=== PATIENT | female | born 1975 | race Caucasian/White ===

== ENCOUNTER → 2024-01-06 15:03 | Outpatient (REF) | payer BC, SELFPAY | LOC: HWRAD 15:03 | PROVIDERS: ATTENDING PHYSICIAN Otolaryngology Facial Plastic Surgery; FAMILY PHYSICIAN Physician Assistant Medical | DX: J34.2 Deviated nasal septum (principal); J32.0 Chronic maxillary sinusitis | CPT/HCPCS: 70486 ==

== ENCOUNTER → 2024-03-14 06:35 | Outpatient (REF) | payer BC, SELFPAY ==
[2024-03-14 07:41] LABS: Hemoglobin 13.3 g/dL (12.0-16.0); Mean Corp Hgb Conc. 32.4 g/dL (33.0-37.0); Mean Corpuscular Hgb 28.5 pg (27.0-31.0); Mean Corpuscular Volume 87.8 fL (81.0-99.0); Mean Platelet Volume 11.3 fL (7.4-10.4); Platelet Count 232 10^3/uL (130-400); Red Blood Cell Count 4.67 10^6/uL (4.20-5.40); Red Cell Dist. Width 13.3 % (11.5-14.5); White Blood Cell Count 6.1 10^3/uL (4.8-10.8)
[2024-03-14 08:20] LABS: ALT (SGPT) 15 U/L (0-35); AST (SGOT) 22 U/L (14-36); Albumin 4.2 g/dl (3.5-5.0); Alkaline Phosphatase 49 U/L (38-126); Blood Urea Nitrogen 24 mg/dl (7-17); Calcium 9.2 mg/dl (8.4-10.2); Carbon Dioxide 27 mmol/L (22-30); Chloride 103 mmol/L (98-107); Glucose 89 mg/dl (70-99); HDL Cholesterol 77 mg/dl; LDL Cholesterol, Calculated 90 mg/dl; Potassium 3.9 mmol/L (3.5-5.1); Sodium 140 mmol/L (135-145); Total Bilirubin 0.6 mg/dl (0.2-1.3); Total Cholesterol 192 mg/dl (50-199); Total Protein 6.7 g/dl (6.3-8.2); Triglyceride 127 mg/dl (10-149); Very Low Density Lipoprotein 25 mg/dl (0-30); eGFR > 60.00
== END ==
LOC: REG 06:35
PROVIDERS: ATTENDING PHYSICIAN Physician Assistant Medical
DX: F32.81 Premenstrual dysphoric disorder (principal); Z00.00 Encounter for general adult medical examination without abnormal findings; R79.89 Other specified abnormal findings of blood chemistry; Z13.220 Encounter for screening for lipoid disorders
CPT/HCPCS: 36415; 80053; 80061; 84443; 85027

== ENCOUNTER → 2024-04-12 08:13 | Outpatient (REF) | payer BC, SELFPAY ==
[2024-04-12 10:25] LABS: FSH 58.9 mIU/ml
[2024-04-12 10:26] LABS: Estradiol 34.8 pg/ml
== END ==
LOC: REG 08:13
PROVIDERS: ATTENDING PHYSICIAN Physician Assistant Medical
DX: Z90.710 Acquired absence of both cervix and uterus (principal)
CPT/HCPCS: 36415; 82670; 83001; 83002

== ENCOUNTER 2024-07-14 06:21 | Day surgery (SDC) | payer BC, SELFPAY ==
[2024-07-14] VITALS (13 sets, daily range): BP systolic 109–137; BP diastolic 64–88; BMI 24.4
[2024-07-14] MEDS: NORMOSOL-R/PLASMALYTE-A 1000 IV (07:30)
[2024-07-14] MEDS: ZOFRAN 4 MG IV (10:06)
== END 2024-07-14 12:24 | disposition home or self-care (01) ==
LOC: SDS 06:21
PROVIDERS: ATTENDING PHYSICIAN Otolaryngology Facial Plastic Surgery
DX: J34.2 Deviated nasal septum (principal); J34.3 Hypertrophy of nasal turbinates; J34.89 Other specified disorders of nose and nasal sinuses; J30.9 Allergic rhinitis, unspecified
CPT/HCPCS: 30520; 30140

== ENCOUNTER → 2025-04-30 06:39 | Outpatient (REF) | payer BC, SELFPAY ==
[2025-04-30 07:24] LABS: Hematocrit 41.2 % (37.0-47.0); Hemoglobin 13.6 g/dL (12.0-16.0); Mean Corp Hgb Conc. 33.0 g/dL (33.0-37.0); Mean Corpuscular Volume 85.7 fL (81.0-99.0); Nucleated Red Blood Cells % 0 %; Platelet Count 286 10^3/uL (130-400); Red Cell Dist. Width 13.2 % (11.5-14.5)
[2025-04-30 08:02] LABS: ALT (SGPT) 13 U/L (0-35); AST (SGOT) 16 U/L (14-36); Albumin 4.7 g/dl (3.5-5.0); Alkaline Phosphatase 45 U/L (38-126); Blood Urea Nitrogen 26 mg/dl (7-17); Calcium 9.5 mg/dl (8.4-10.2); Carbon Dioxide 26 mmol/L (22-30); Chloride 105 mmol/L (98-107); Glucose 139 mg/dl (70-99); HDL Cholesterol 72 mg/dl; LDL Cholesterol, Calculated 106 mg/dl; Potassium 4.2 mmol/L (3.5-5.1); Sodium 139 mmol/L (135-145); Total Protein 7.1 g/dl (6.3-8.2); Very Low Density Lipoprotein 36 mg/dl (0-30); eGFR > 60.00
[2025-05-01 10:16] LABS: Glycohemoglobin (HgbA1c) 5.6 % (4.0-5.6)
== END ==
LOC: REG 06:39
PROVIDERS: ATTENDING PHYSICIAN Physician Assistant Medical
DX: Z00.00 Encounter for general adult medical examination without abnormal findings (principal); F32.81 Premenstrual dysphoric disorder; G47.26 Circadian rhythm sleep disorder, shift work type; R06.83 Snoring; Z13.220 Encounter for screening for lipoid disorders
CPT/HCPCS: 36415; 80053; 80061; 83036; 84439; 84443; 85025

== ENCOUNTER → 2025-05-21 06:45 | Outpatient (REF) | payer BC, SELFPAY ==
[2025-05-21 08:39] LABS: Free T3 4.34 pg/ml (2.77-5.27)
[2025-05-21 08:42] LABS: Vitamin D, 25-OH*** 26.0 ng/mL (30-80)
[2025-05-21 08:57] LABS: Ferritin 71.6 ng/ml (6.24-137)
[2025-05-21 09:12] LABS: Vitamin B12 478 pg/ml (239-931)
[2025-05-22 19:49] LABS: Thyroglobulin 16.7 ng/mL (1.3-31.8); Thyroglobulin Antibodies <1.5 IU/mL (0.0-4.0)
[2025-05-23 00:22] LABS: Thyroid Stim. Immunoglobulin <0.10 IU/L (<=0.54)
== END ==
LOC: REG 06:45
PROVIDERS: ATTENDING PHYSICIAN Nurse Practitioner Family; FAMILY PHYSICIAN Physician Assistant Medical
DX: R79.89 Other specified abnormal findings of blood chemistry (principal); R53.83 Other fatigue
CPT/HCPCS: 36415; 82306; 82607; 82728; 83520; 84432; 84443; 84445; 84481; 86376; 86800